=== PATIENT | male | born 1970 | race Asian ===

== ENCOUNTER 2025-06-06 03:34 | Emergency (ER) | payer OTHER ==
[~2025-06-06] VITALS: Ht 160 cm; Wt 59.1 kg
[2025-06-06 03:45] VITALS: TEMP 97.9
[2025-06-06] MEDS ORDERED: KETOROLAC TROMETHAMINE 30 MG/ML VIAL IM ONE (05:00)
[2025-06-06 05:36] LABS: PLATELET COUNT (AUTO) 230 K/uL (150-450); RED BLOOD CELL COUNT(AUTO) 4.13 MIL/uL (4.50-5.90); RED CELL DISTRIBUTION WIDTH 13.9 % (11.5-14.5); WHITE BLOOD COUNT (AUTO) 10.5 K/uL (4.5-11.0)
[2025-06-06 05:46] LABS: CALCIUM, TOTAL 8.8 mg/dL (8.8-10.5); CREATININE 0.71 mg/dL (0.60-1.30); GLOMERULAR FILTR. RATE CALC > 60 mL/min (>60); GLUCOSE,RANDOM 88 mg/dL (70-110); SODIUM SERUM 141 mmol/L (136-145); UREA NITROGEN, BLOOD 14 mg/dL (7-18)
[2025-06-06 05:50] LABS: ASPARTATE AMINOTRANSFERASE 26.0 U/L (15-37); TOTAL PROTEIN, SERUM 7.6 g/dL (6.4-8.2)
[2025-06-06 05:56] LABS: ALCOHOL, BLOOD (SERUM) 113.0 mg/dL (0-10)
[2025-06-06 05:59] LABS: TROPONIN I-HIGH SENSITIVITY 7 ng/L (<76)
[2025-06-06] MEDS ORDERED: ACET-66 PO (08:02)
[2025-06-06] MEDS ORDERED: OMEP-148 PO (08:02)
[2025-06-06] MEDS ORDERED: MAG30ORA11 PO (08:02)
[2025-06-06 08:23] VITALS: BP 122/78; PULSE 87; RESP 18; O2SAT 99
== END 2025-06-06 08:27 | disposition home or self-care (01) ==
LOC: EMS 03:36 → EDBD 03:36 → EMS 08:27
DX: F10.129 Alcohol abuse with intoxication, unspecified (principal); K29.70 Gastritis, unspecified, without bleeding; F12.90 Cannabis use, unspecified, uncomplicated; Z79.899 Other long term (current) drug therapy; Y90.9 Presence of alcohol in blood, level not specified
CPT/HCPCS: 99284; 76705; 80048; 80076; 83690; 84484; 85025; 36415; 93005; G0480; J1885